=== PATIENT | male | born 1995 ===

== ENCOUNTER 2019-09-29 22:23 | Emergency (ER) | payer MEDICAID ==
[2019-09-29] MEDS ORDERED: Sodium Chloride 0.9% 10 ML Syringe FLUSH PRN (22:46)
--- NOTE | 2019-09-29 22:46 | EDM.PDOC ---
ED HPI GENERAL MEDICAL PROBLEM - General Chief Complaint: Neurological Problem Stated Complaint: recent seizure Time Seen by Provider: 09/29/19 22:30 Source of Information: Reports: Patient, Old Records ([facility] records available), Significant Other, Other ([facility], [facility]) - History of Present Illness INITIAL COMMENTS - FREE TEXT/NARRATIVE: The patient was brought to the emergency room via private automobile by the mother of his significant other for evaluation of witnessed recurrent grand mal seizure activity with seizures occurring at 21:40 hours and 21:50 hours and then at 21: 52 hours with each seizure lasting between 1-2 minutes, however no postictal sedation urinary/stool incontinence, significant fall, injury, etc. He did complain of a 9/10 diffuse headache starting at 3 PM this afternoon with 400 mg of ibuprofen taken at 16:00 hours. Note that the patient did have an argument with his significant other shortly prior to onset of the above seizures. No history of recent visual changes, diplopia, change in mental status , or other change in neurological status. The patient denies any chest pain/ pressure, heart flutter, dizziness, orthostasis, orthopnea, diaphoresis, paresthesias, recent decreased exercise tolerance, or any other anginal-type symptoms. No recent history of abdominal pain, heartburn, nausea, diarrhea, melena, gross hematochezia, or any food intolerance, including fatty foods, etc. , although he did have one emesis earlier this morning. The patient also denies any recent fever, cough, wheezing, dyspnea, etc.. Onset: Today, Sudden Onset Date: 09/29/19 Onset Time: 21:40 Duration: Resolved Prior to Arrival Location: Reports: Head (Headache). Denies: Face, Neck, Chest, Abdomen, Back, Upper Extremity, Left, Upper Extremity, Right, Radiates to Quality: Reports: Same as Previous Episode, Throbbing Severity: Moderate Improves with: Reports: None Worsens with: Reports: None Context: Reports: Other (As above). Denies: Sick Contact, Trauma Associated Symptoms: Reports: Headaches, Nausea/Vomiting (No current nausea), Seizure (Possible). Denies: Confusion, Chest Pain, Cough, Diaphoresis, Fever/ Chills, Loss of Appetite, Malaise, Rash, Shortness of Breath, Syncope, Weakness Treatments [employer]: Reports: NSAIDS Bilateral Headache Pain Score (Numeric/FACES): 9 - Related Data Allergies Allergy/AdvReac Type Severity Reaction Status Date / Time No Known Allergies Allergy Verified 09/29/19 22:25 Home Meds: Home Meds ALPRAZolam [Xanax] 0.5 mg PO DAILY PRN 09/29/19 [History] Escitalopram Oxalate [Lexapro] 10 mg PO DAILY 09/29/19 [History] Ibuprofen 2 tab PO Q6HR PRN 09/29/19 [History] Past Medical History HEENT History: Reports: Impaired Vision, Other (See Below). Denies: Allergic Rhinitis, Hard of Hearing, Otitis Media, Retinal Detachment Other HEENT History: Patient has glasses however noncompliant. Cardiovascular History: Reports: Other (See Below). Denies: Afib, Aneurysm, Arrhythmia, Blood Clots/VTE/DVT, CAD, Heart Failure, Heart Murmur, High Cholesterol, Hypertension, PA, Syncope Other Cardiovascular History: He does not know his cholesterol status. Respiratory History: Reports: None. Denies: Asthma, Bronchitis, Recurrent, Intubation, Previous, PE, Pneumothorax Gastrointestinal History: Reports: None. Denies: Celiac Disease, Cholelithiasis , Fecal Incontinence, Gastritis, GERD, Inflammatory Bowel Disease, Irritable Bowel Syndrome, Jaundice, PUD Genitourinary History: Reports: None. Denies: Acute Renal Failure, Chronic Renal Insuffiency, Renal Calculus, STD, Urinary Incontinence, UTI, Recurrent Musculoskeletal History: Reports: Fracture, Other (See Below). Denies: Arthritis, Back Pain, Chronic, Gout, Neck Pain, Chronic, Osteoarthritis, RA, SLE Other Musculoskeletal History: Scoliosismild. Boxer's fracture of the right fifth metatarsal at age 17 with surgery as below. Right wrist fracture at age 8 with surgery as below. Mid radial and ulnar shaft fractures age 15. Neurological History: Reports: Headaches, Chronic, Seizure, Other (See Below). Denies: Concussion, CVA, Head Trauma, Migraines, MS, Neuropathy, Peripheral, Parkinson's, TIA, Vertigo Other Neuro History: Grand mal seizure disorder versus pseudoseizures beginning at age 14 negative workup to this point. Psychiatric History: Reports: Anxiety, Depression, Psych Hospitalization(s), Suicide Attempt, Suicidal Ideation, Other (See Below). Denies: Abuse, Victim of , ADD, ADHD, Addiction Other Psychiatric History: History of previous 15 suicide attempts, including narcotic overdoses, requiring inpatient treatments. Endocrine/Metabolic History: Reports: None. Denies: Diabetes, Type I, Diabetes , Type II, Hypothyroidism, IDDM Hematologic History: Reports: None. Denies: Anemia, Blood Transfusion(s), Iron Deficiency Immunologic History: Reports: None. Denies: AIDS, HIV, SLE Oncologic (Cancer) History: Reports: None. Denies: Basal Cell Carcinoma, Hodgkin's Lymphoma, Leukemia, Lymphoma, Malignant Melanoma, Non-Hodgkin's Lymphoma, Squamous Cell Carcinoma Dermatologic History: Reports: None. Denies: Eczema, Psoriasis - Infectious Disease History Infectious Disease History: Reports: Mononucleosis (Possible previous mononucleosis at age 14.). Denies: C-Difficile, Chicken Pox, Measles, Meningitis, MRSA, Multidrug-Resistant Gram-Negative, Other, Mumps, Pertussis ( Whooping Cough), Rheumatic Fever, Rubella, Scarlet Fever, TB, VRE - Past Surgical History Head Surgeries/Procedures: Reports: None HEENT Surgical History: Reports: Adenoidectomy, Oral Surgery, Tonsillectomy, Other (See Below). Denies: Eye Surgery, Laser Surgery, LASIK, Myringotomy w Tube(s), Naso-Sinus Surgery Other HEENT Surgeries/Procedures: Tonsillectomy and adenoidectomy at age 9. Tooth extractions. [place] teeth extraction X 4 at age 18. Cardiovascular Surgical History: Reports: None. Denies: Varicose Respiratory Surgical History: Reports: None. Denies: Thoracentesis GI Surgical History: Reports: None. Denies: Appendectomy, Cholecystectomy, Colonoscopy, EGD, Hernia, Abdominal, Hernia, Inguinal, Hernia Repair/Other Male Surgical History: Reports: Circumcision, Other (See Below). Denies: Vasectomy Other Male Surgeries/Procedures: Circumcision as an . Endocrine Surgical History: Reports: None. Denies: Thyroid Biopsy Neurological Surgical History: Reports: None. Denies: C-Spine, Discectomy, Laminectomy, Lumbar Spine, Scoliosis, Spinal Fusion, Thoracic Spine, Vertebroplasty Musculoskeletal Surgical History: Reports: ORIF, Other (See Below). Denies: Arthroscopic Procedure, Carpal Tunnel, Ganglion Cyst, Joint Replacement, Shoulder Surgery Other Musculoskeletal Surgeries/Procedures:: ORIF of right wrist fracture and right fifth metatarsal fractures as above. Oncologic Surgical History: Reports: None Dermatological Surgical History: Reports: None Social & Family History - Family History Neurological: Reports: Seizure, Other (See Below) Other Neurological Family History: Paternal grandmother with unknown type of seizure disorder since manager ct. - Tobacco Use Smoking Status *Q: Current Every Day Smoker Tobacco Use Within Last Twelve Months: Cigarettes Years of Tobacco use: 9 Packs/Tins Daily: 1 (Started at age 15.) Used Tobacco, but Quit: No Smoking Cessation Information Provided To Patient: Yes Second Hand Smoke Exposure: No Second Hand Smoke Education Provided: No - Caffeine Use Caffeine Use: Reports: Energy Drinks (One can per day tobacco), Soda (5 sodas per day). Denies: Coffee, Tea - Alcohol Use Alcohol Use History: Yes Days Per Week of Alcohol Use: 1 Number of Drinks Per Day: 5 Number of Drinks Per Day Comment: Usually Beer. No previous DWIs, problems with alcohol abuse, etc. Total Drinks Per Week: 5 Alcohol Use in Last Twelve Months: Yes - Recreational Drug Use Recreational Drug Use: Yes Drug Use in Last 12 Months: Yes Recreational Drug Type: Reports: Marijuana/Hashish (Every 2 days since age 15.) . Denies: Amphetamines (Speed), Cocaine, Heroin, Inhalants (Glues, Solvents, Aerosols), Methamphetamine, Morphine, Opium, Oxycodone - Living Situation & Occupation Living situation: Reports: with Significant Other (Son from a different relationship.) Occupation: Employed (warehouse pricing and inventory clerk, adviser for staying cleaning service) ED ROS GENERAL - Review of Systems Review Of Systems: Comprehensive ROS is negative, except as noted in HPI. ED EXAM, NEURO - Physical Exam Exam: See Below Exam Limited By: No Limitations General Appearance: Alert, WD/WN, No Apparent Distress Eye Exam: Bilateral Eye: EOMI, Normal Fundi, Normal Inspection (No nystagmus), PERRL Ears: Normal External Exam, Normal Canal, Hearing Grossly Normal, Normal TMs Nose: Normal Inspection, Normal Mucosa, No Blood Throat/Mouth: Normal Lips, Normal Gums, Normal Oropharynx, Normal Voice, No Airway Compromise, Other (No evidence of tongue injury.). No: Normal Teeth ( Occasional missing teeth with large anterior caries in the last left lower premolar with no abscess formation), Dysphagia, Perioral Cyanosis Head Exam: Atraumatic, Normocephalic. No: Facial Swelling, Facial Tenderness, Sinus Tenderness Neck: Normal Inspection, Supple, Non-Tender, Full Range of Motion. No: Carotid Bruit, Lymphadenopathy (L), Lymphadenopathy (R), Thyromegaly Respiratory/Chest: No Respiratory Distress, Lungs Clear, Normal Breath Sounds, No Accessory Muscle Use, Chest Non-Tender. No: Pleural Rub, Retractions Cardiovascular: Normal Peripheral Pulses, Regular Rate, Rhythm, No Edema, No Gallop, No JVD, No Murmur, No Rub. No: Diastolic Murmur, Gallop/S3, Gallop/S4 GI/Abdominal: Normal Bowel Sounds, Soft, Non-Tender, No Organomegaly, No Distention, No Abnormal Bruit, No Mass, Pelvis Stable. No: Guarding (Male) Exam: Deferred Rectal (Males) Exam: Deferred Neurological: Alert, Normal Mood/Affect, Normal Dorsiflexion, CN II-XII Intact, Normal Plantar Flexion, Normal Gait, Normal Reflexes, No Motor/Sensory Deficits , Oriented x 3, Other (Negative Babinski's, finger to nose, and pronator rotation tests. No evidence of facial paresis, tongue deviation, orthostasis, etc.. Excellent reverse thought processes.). No: Babinski Back Exam: Normal Inspection, Full Range of Motion. No: CVA Tenderness (L), CVA Tenderness (R), Muscle Spasm Extremities: Normal Inspection, Normal Range of Motion, Non-Tender, No Pedal Edema, Normal Capillary Refill. No: Sandi's Sign Psychiatric: Anxious (Mild to moderate), Depressed Mood (Mild to moderate with adequate eye) Skin Exam: Warm, Dry, Intact, Normal Color, No Rash, Other (Mild acne). No: Diaphoretic, Wound/Incision EKG INTERPRETATION EKG Date: 09/29/19 Time: 23:21 Rhythm: NSR Rate (Beats/Min): 66 Howard: Normal (Neutral) P-Wave: Present QRS: Normal (0.10 seconds representing repolarization changes) ST-T: Normal (T wave inversion in lead V1) QT: Normal PA/PQ Interval: 0.13 seconds was in a short PA interval with no delta waves noted. Pulmonary hypertension by EKG. Comparison: NA - No Prior EKG EKG Interpretation Comments: 1. No acute ischemic changes 2. Repolarization changes 3. Short PA interval 4. Pulmonary hypertension by EKG. Course - Vital Signs Last Recorded V/S: Last Vital Signs Temp 37.3 C 09/29/19 23:58 Pulse 76 09/29/19 23:58 Resp 12 09/29/19 23:58 BP 127/76 09/29/19 23:58 Pulse Ox 99 09/29/19 23:58 Vital Signs - 24 hr 09/29/19 09/29/19 09/29/19 22:25 22:45 23:00 Temperature [ 37.5 C Temporal] Pulse, 87 90 83 Peripheral [ Pulse Oximetry] Respiratory 14 24 H 25 H Rate Blood Pressure 129/90 116/75 129/83 [Left Upper Arm ] O2 Sat by Pulse 98 100 99 Oximetry 09/29/19 09/29/19 09/29/19 23:17 23:30 23:45 Temperature [ Temporal] Pulse, 81 79 74 Peripheral [ Pulse Oximetry] Respiratory 14 18 16 Rate Blood Pressure 126/90 111/96 H 114/78 [Left Upper Arm ] O2 Sat by Pulse 100 98 99 Oximetry 09/29/19 23:58 Temperature [ 37.3 C Temporal] Pulse, 76 Peripheral [ Pulse Oximetry] Respiratory 12 Rate Blood Pressure 127/76 [Left Upper Arm ] O2 Sat by Pulse 99 Oximetry - Orders/Labs/Meds Orders: Active Orders 24 hr Category Date Time Status Cardiac Monitoring [RC] STAT Care 09/29/19 22:46 Active EKG Documentation Completion [RC] ASDIRECTED Care 09/29/19 22:47 Active NIH Stroke Scale [RC] ASDIRECTED Care 09/29/19 22:46 Active Oxygen Therapy, ED [RC] PRN Care 09/29/19 22:46 Active Peripheral IV Care [RC] . DIRECTED Care 09/29/19 22:47 Active Pulse Oximetry [RC] CONTINUOUS Care 09/29/19 22:46 Active Up With Assistance [RC] ASDIRECTED Care 09/29/19 22:46 Active Vital Signs [RC] PFP Care 09/29/19 22:46 Active Nothing per Oral Now Diet [DIET] Diet 09/29/19 Breakfast Active Chest 1V Frontal [CR] Stat Exams 09/29/19 22:46 Ordered Head wo Cont [CT] Stat Exams 09/29/19 22:46 Ordered Head wo Cont [CT] Stat Exams 09/29/19 22:46 Stop Req PROLACTIN [REF] Stat Lab 09/29/19 22:45 Received Sodium Chloride 0.9% [Saline Flush] Med 09/29/19 22:46 Active 10 ml FLUSH ASDIRECTED PRN Obtain Past Medical Record [OM.PC] Stat Oth 09/29/19 22:46 Active Peripheral IV Insertion Adult [OM.PC] Stat Oth 09/29/19 22:46 Ordered Resuscitation Status Stat Resus Stat 09/29/19 22:46 Ordered Medication Orders Sodium Chloride (Saline Flush) 10 ml FLUSH ASDIRECTED PRN PRN Reason: Keep Vein Open Labs: Laboratory Tests 09/29/19 09/29/19 09/29/19 Range/Units 22:45 22:45 22:45 WBC 9.6 (4.0-10.2) K/uL RBC 4.56 (4.33-5.41) M/uL Hgb 15.0 (13.1-16.8) g/dL Hct 42.9 (39.0-49.0) % MCV 94.1 (84.0-98.0) fL MCH 32.9 (28.2-33.3) pg MCHC 35.0 (31.7-36.0) g/dL RDW 11.9 (11.2-14.1) % Plt Count 277 (150-350) K/uL Neut % (Auto) 73.6 (45.0-80.0) % Lymph % (Auto) 15.3 (10.0-50.0) % Meade % (Auto) 9.4 (2.0-14.0) % Eos % (Auto) 1.4 (0.0-5.0) % Baso % (Auto) 0.3 (0.0-2.0) % Neut # (Auto) 7.05 H (1.40-7.00) K/uL Lymph # (Auto) 1.46 (0.50-3.50) K/uL Meade # (Auto) 0.90 (0.00-1.00) K/uL Eos # (Auto) 0.13 (0.00-0.50) K/uL Baso # (Auto) 0.03 (0.00-0.20) K/uL PT 11.4 (9.5-12.0) SEC INR 1.1 APTT 29.9 (21.0-31.3) SEC D-Dimer, Quantitative 108 (0-400) ng/mL Sodium (136-145) mmol/L Potassium (3.5-5.1) mmol/L Chloride (98-107) mmol/L Carbon Dioxide (21.0-32.0) mmol/L BUN (7-18) mg/dL Creatinine (0.51-1.17) mg/dL Est Cr Clr Drug Dosing Estimated GFR (MDRD) mL/min Glucose (74-106) mg/dL Lactic Acid (0.4-2.0) mmol/L Uric Acid (2.6-7.2) mg/dL Calcium (8.5-10.1) mg/dL Magnesium (1.8-2.4) mg/dL Total Bilirubin (0.2-1.0) mg/dL AST (15-37) U/L ALT (12-78) U/L Alkaline Phosphatase (46-116) IU/L Creatine Kinase (26-308) U/L Creatine Kinase Index (0.0-2.5) % CK-MB (CK-2) (0.00-3.60) ng/mL Troponin I (0.000-0.056) ng/mL NT-Pro-B Natriuret Pep (0-125) pg/mL Total Protein (6.4-8.2) g/dL Albumin (3.4-5.0) g/dL TSH, Ultra Sensitive (0.358-3.740) mIU/mL Ethyl Alcohol (0.000-0.080) g/dL 09/29/19 09/29/19 09/29/19 Range/Units 22:45 22:45 22:45 WBC (4.0-10.2) K/uL RBC (4.33-5.41) M/uL Hgb (13.1-16.8) g/dL Hct (39.0-49.0) % MCV (84.0-98.0) fL MCH (28.2-33.3) pg MCHC (31.7-36.0) g/dL RDW (11.2-14.1) % Plt Count (150-350) K/uL Neut % (Auto) (45.0-80.0) % Lymph % (Auto) (10.0-50.0) % Meade % (Auto) (2.0-14.0) % Eos % (Auto) (0.0-5.0) % Baso % (Auto) (0.0-2.0) % Neut # (Auto) (1.40-7.00) K/uL Lymph # (Auto) (0.50-3.50) K/uL Meade # (Auto) (0.00-1.00) K/uL Eos # (Auto) (0.00-0.50) K/uL Baso # (Auto) (0.00-0.20) K/uL PT (9.5-12.0) SEC INR APTT (21.0-31.3) SEC D-Dimer, Quantitative (0-400) ng/mL Sodium 141 (136-145) mmol/L Potassium 3.1 L (3.5-5.1) mmol/L Chloride 103 (98-107) mmol/L Carbon Dioxide 24.9 (21.0-32.0) mmol/L BUN 7 (7-18) mg/dL Creatinine 0.79 (0.51-1.17) mg/dL Est Cr Clr Drug Dosing TNP Estimated GFR (MDRD) > 60 mL/min Glucose 91 (74-106) mg/dL Lactic Acid 1.4 (0.4-2.0) mmol/L Uric Acid 5.1 (2.6-7.2) mg/dL Calcium 9.4 (8.5-10.1) mg/dL Magnesium 1.9 (1.8-2.4) mg/dL Total Bilirubin 0.7 (0.2-1.0) mg/dL AST 15 (15-37) U/L ALT 16 (12-78) U/L Alkaline Phosphatase 66 (46-116) IU/L Creatine Kinase 136 (26-308) U/L Creatine Kinase Index 0.6 (0.0-2.5) % CK-MB (CK-2) 0.80 (0.00-3.60) ng/mL Troponin I 0.000 (0.000-0.056) ng/mL NT-Pro-B Natriuret Pep 22 (0-125) pg/mL Total Protein 8.4 H (6.4-8.2) g/dL Albumin 4.9 (3.4-5.0) g/dL TSH, Ultra Sensitive 1.659 (0.358-3.740) mIU/mL Ethyl Alcohol 0.000 (0.000-0.080) g/dL Prolactin level drawn with results pending. Meds: Medications Generic Name Dose Route Start Last Admin Trade Name Freq PRN Reason Stop Dose Admin Sodium Chloride 10 ml 09/29/19 22:46 Saline Flush FLUSH ASDIRECTED PRN Keep Vein Open Discontinued Medications Generic Name Dose Route Start Last Admin Trade Name Freq PRN Reason Stop Dose Admin Potassium Chloride 40 meq 09/30/19 23:39 Klor-Con M20 PO 09/30/19 23:40 ONETIME ONE Potassium Chloride 40 meq 09/29/19 23:39 09/29/19 23:55 Klor-Con M20 PO 09/29/19 23:40 40 meq ONETIME ONE Administration - Radiology Interpretation Free Text/Narrative:: monitoring engineer shows normal sinus rhythm ranging the 60s to 80s with no ectopy or arrhythmia. Chest x-ray, portable, shows evidence of possible pulmonary obstructive disease with no cardiomegaly, pulmonary infiltrates, CHF, pneumothorax, etc. Telephone consultation at 23:35 hours with the radiology department at [facility]. Preliminary verbal report of CT scan of the head was negative. CT Results Date: 09/29/19 CT Results Time: 23:35 Departure - Departure Time of Disposition: 00:12 Disposition: Home, Self-Care 01 Condition: Good Clinical Impression: Seizure disorder, Mixed anxiety depressive disorder, Hypokalemia, Tobacco abuse counseling, Illicit drug use, continuous - Discharge Information *PRESCRIPTION DRUG MONITORING PROGRAM REVIEWED*: Not Applicable *COPY OF PRESCRIPTION DRUG MONITORING REPORT IN PATIENT JARED: Not Applicable Instructions: Non-Epileptic Seizures, Adult, Seizure, Adult, [id number] Referrals: PCP,None [Ordering Only Provider] - Forms: ED Department Discharge, ED Return to Work/School Form Additional Instructions: 1. Call your regular provider DHARMESH in the a.m. for recommended neurology referral/consultation including recommended EEG. 2. Followup with your regular provider in 7 days as directed for reevaluation, basic metabolic panel, and discussion of today's prolactin level results. Bring these discharge instructions with you to that visit. 3. Tylenol 650 mg by mouth every 4 hours and/or OTC ibuprofen 2-3 tabs by mouth every 6 hours with food as directed./needed. You may stagger these medications for 48-72 hours only, which essentially means that you are receiving a pain medication about every 2 hours. 4. Restart your antidepressant and anti-anxiety indications DHARMESH as far refills from your regular provider tomorrow morning as above 5. Stop all tobacco and illicit drugs/marijuana use DHARMESH as directed/per provided information and consider contacting Quit LIne, etc.. 6. Immediately after this visit verify that your cellular telephone's voicemail has been activated and is empty. Also verify that your home telephone 's answering machine is operating properly and has space to receive messages. Note that it is sometimes necessary for us to be able to contact you at a later date to discuss your medical care. 7. Please remember that we are ALWAYS here for you and want to answer any questions you may have. Feel free to call the hospital any time and we call you back DHARMESH. 8. Activity restrictions as discussed until released by your neurologist, including strict no driving, strict fall precautions, etc. Sepsis Event Note - Evaluation Sepsis Screening Result: No Definite Risk - Focused Exam Vital Signs: Vital Signs Temp Pulse Resp BP Pulse Ox 09/29/19 23:58 37.3 C 76 12 127/76 99 09/29/19 23:45 74 16 114/78 99 09/29/19 23:30 79 18 111/96 H 98 09/29/19 23:17 81 14 126/90 100 09/29/19 23:00 83 25 H 129/83 99 09/29/19 22:45 90 24 H 116/75 100 09/29/19 22:25 37.5 C 87 14 129/90 98 Date Exam was Performed: 09/30/19 Time Exam was Performed: 00:20 - Problem List & Annotations (1) Seizure disorder SNOMED Code(s): 570043062 Code(s): G40.909 - EPILEPSY, UNSP, NOT INTRACTABLE, WITHOUT STATUS EPILEPTICUS Status: Acute Priority: High Annotation/Comment:: Patient states that he has had recurrent seizures since age 14 with multiple negative workups, including CT scans of the head, EEGs, etc. His last seizure was in November 2018 and was seen at [facility] in [place] with CT scan of the head and EEG performed at that time by his history. Extensive review of EMR records both from [facility] and [facility] do not indicate recent testing or evaluation, however. No postictal sedation, etc. despite 3 seizures this evening. Suspect pseudoseizure. Note negative CT scan of the head results as above. Neurology referral with recommended EEG as per discharge instructions. Activity restrictions including driving, etc. were extensively discussed. Work excuse provided with patient having to be released by his neurologist rather than primary provider to lift these restrictions. Prolactin level drawn with results pending. Note per indirect history between the patient's mother and the mother of his significant other earlier this evening the patient has always had seizures triggered by stress and/or emotional events just as today. The patient denies any other triggers at this time, including watching television, insomnia/ sleep deprivation, etc. The patient was provided information concerning both pseudoseizures and regular seizures. (2) Hypokalemia SNOMED Code(s): 21375412 Code(s): E87.6 - HYPOKALEMIA Status: Acute Priority: Medium Onset Date : 09/30/19 Annotation/Comment:: Note 1 emesis earlier today. He is not on any medications, which would cause hypokalemia. Potassium chloride given in the emergency room. Observe for now. Close follow-up by regular provider as per discharge instructions. (3) Illicit drug use, continuous SNOMED Code(s): 301500322 Code(s): F19.90 - OTHER PSYCHOACTIVE SUBSTANCE USE, UNSPECIFIED, UNCOMPLICATED Status: Chronic Priority: High Annotation/Comment:: As above (4) Mixed anxiety depressive disorder SNOMED Code(s): 119464998 Code(s): F41.8 - OTHER SPECIFIED ANXIETY DISORDERS Status: Chronic Priority: High Annotation/Comment:: Moderate to poor control with the patient having been noncompliant with his medications for several months secondary to financial reasons. Strict compliance strongly encouraged with the patient also encouraged not to use marijuana as an antianxiety agent. He denies any suicidal ideation at this time. (5) Tobacco abuse counseling SNOMED Code(s): 162544172, 911628413, 624367561 Code(s): Z71.6 - TOBACCO ABUSE COUNSELING Status: Chronic Priority: Medium Annotation/Comment:: Tobacco cessation strongly encouraged with tobacco cessation information provided at discharge. - Problem List Review Problem List Initiated/Reviewed/Updated: Yes - My Orders Last 24 Hours: My Active Orders 09/29/19 22:45 PROLACTIN [REF] Stat 09/29/19 22:46 Cardiac Monitoring [RC] STAT NIH Stroke Scale [RC] ASDIRECTED Oxygen Therapy, ED [RC] PRN Pulse Oximetry [RC] CONTINUOUS Up With Assistance [RC] ASDIRECTED Vital Signs [RC] PFP Chest 1V Frontal [CR] Stat Head wo Cont [CT] Stat Head wo Cont [CT] Stat Sodium Chloride 0.9% [Saline Flush] 10 ml FLUSH ASDIRECTED PRN Obtain Past Medical Record [OM.PC] Stat Peripheral IV Insertion Adult [OM.PC] Stat Resuscitation Status Stat 09/29/19 22:47 EKG Documentation Completion [RC] ASDIRECTED Peripheral IV Care [RC] . DIRECTED 09/29/19 Breakfast Nothing per Oral Now Diet [DIET] - Assessment/Plan Last 24 Hours: My Active Orders 09/29/19 22:45 PROLACTIN [REF] Stat 09/29/19 22:46 Cardiac Monitoring [RC] STAT NIH Stroke Scale [RC] ASDIRECTED Oxygen Therapy, ED [RC] PRN Pulse Oximetry [RC] CONTINUOUS Up With Assistance [RC] ASDIRECTED Vital Signs [RC] PFP Chest 1V Frontal [CR] Stat Head wo Cont [CT] Stat Head wo Cont [CT] Stat Sodium Chloride 0.9% [Saline Flush] 10 ml FLUSH ASDIRECTED PRN Obtain Past Medical Record [OM.PC] Stat Peripheral IV Insertion Adult [OM.PC] Stat Resuscitation Status Stat 09/29/19 22:47 EKG Documentation Completion [RC] ASDIRECTED Peripheral IV Care [RC] . DIRECTED 09/29/19 Breakfast Nothing per Oral Now Diet [DIET] Assessment:: As above Plan: As above. Extensive precautions were given to the patient and his significant other, who are in agreement with the treatment plan.Extensive precautions were given to the patient, who is in agreement with the treatment plan.
[2019-09-29 23:19] LABS: CHLORIDE,CL 103 mmol/L (98-107); SODIUM,NA 141 mmol/L (136-145)
[2019-09-29] MEDS ORDERED: Potassium Chloride 20 MEQ Tab.ER PO ONE (23:39)
[2019-09-30] MEDS ORDERED: Potassium Chloride 20 MEQ Tab.ER PO ONE (23:39)
== END 2019-09-30 00:10 | disposition home or self-care (01) ==
LOC: LL.ED 22:23 → MERGE 22:23 → LL.ED 09-30 00:10
DX: G40.909 Epilepsy, unspecified, not intractable, without status epilepticus (principal); F41.8 Other specified anxiety disorders; E87.6 Hypokalemia; K02.9 Dental caries, unspecified; F19.90 Other psychoactive substance use, unspecified, uncomplicated; Z71.6 Tobacco abuse counseling
CPT/HCPCS: 36415; 70450; 71045; 80053; 82550; 82553; 83605; 83735; 83880; 84146; 84443; 84484; 84550; 85025; 85379; 85610; 85730; 93005; 93010; 99284; 99284-25; A9270-GY; G0480

== ENCOUNTER 2020-01-20 15:16 | Emergency (ER) | payer SELFPAY ==
--- NOTE | 2020-01-20 15:17 | EDM.PDOC ---
ED HPI GENERAL MEDICAL PROBLEM - General Chief Complaint: General Stated Complaint: overdose Time Seen by Provider: 01/20/20 15:17 Source of Information: Reports: Patient, Old Records ([facility] EMR. No paper hospital chart available.), Other (Previous EMR records from [facility] reviewed on 09/29/19.) History Limitations: Reports: Altered Mental Status, Combative/Threatening, Intoxication - History of Present Illness INITIAL COMMENTS - FREE TEXT/NARRATIVE: The patient was brought to the emergency room via ambulance with plate corrector accompaniment after interception with sock knitting machine operator/basic ambulance service. 911 was called secondary to patient's significant sedation and intentional overdose with the patient apparently taking #20, 0.5 mg tablets of Xanax, which he just refilled at noon today. The patient did receive 2 mg of Narcan IV with additional right-sided nasal oral airway inserted by the paramedics prior to arrival. He is a poor historian secondary to his current emotional status, sedation, etc.. No recent history of abdominal pain, heartburn, nausea, diarrhea , melena, gross hematochezia, etc.. The patient also denies any recent fever, cough, wheezing, dyspnea, etc.. He denies taking any other substances or illicit drugs, although he does acknowledge taking alcohol earlier today. No apparent significant pain or discomfort. Note that the patient has been noncompliant with his Xanax for about one year and his Lexapro for about 3-4 months based on refill history from his pharmacist today. He is not currently on any antiseizure medications. He also denies any specific pain or discomfort. Onset: Today, Unknown/Unsure Onset Date: 01/20/20 Onset Time: 12:00 Duration: Constant, Other (No pain) Severity: Severe Improves with: Reports: None Worsens with: Reports: None Associated Symptoms: Reports: Confusion. Denies: Chest Pain, Cough, Fever/ Chills, Headaches, Loss of Appetite, Nausea/Vomiting, Seizure, Shortness of Breath, Syncope, Weakness Treatments SPA TECHNICIAN: Reports: Other Medication(s) (As above) - Related Data Allergies Allergy/AdvReac Type Severity Reaction Status Date / Time No Known Allergies Allergy Verified 09/29/19 22:25 Home Meds: Home Meds ALPRAZolam [Xanax] 0.5 mg PO DAILY PRN 09/29/19 [History] Escitalopram Oxalate [Lexapro] 10 mg PO DAILY 09/29/19 [History] Ibuprofen 2 tab PO Q6HR PRN 09/29/19 [History] Past Medical History HEENT History: Reports: Impaired Vision, Other (See Below). Denies: Allergic Rhinitis, Hard of Hearing, Otitis Media, Retinal Detachment Other HEENT History: Patient has glasses however noncompliant. Cardiovascular History: Reports: Arrhythmia, Other (See Below). Denies: Afib, Aneurysm, Blood Clots/VTE/DVT, CAD, Heart Failure, Heart Murmur, High Cholesterol, Hypertension, SC, Syncope Other Cardiovascular History: Short KS interval. He does not know his cholesterol status. Respiratory History: Reports: None. Denies: Asthma, Bronchitis, Recurrent, COPD , Intubation, Previous, PE, Pneumothorax Gastrointestinal History: Reports: Other (See Below). Denies: Celiac Disease, Cholelithiasis, Fecal Incontinence, Gastritis, GERD, Inflammatory Bowel Disease , Irritable Bowel Syndrome, Jaundice, PUD Other Gastrointestinal History: Borderline splenomegaly. Genitourinary History: Reports: None. Denies: Acute Renal Failure, Chronic Renal Insuffiency, Renal Calculus, STD, Urinary Incontinence, UTI, Recurrent Musculoskeletal History: Reports: Fracture, Other (See Below). Denies: Arthritis, Back Pain, Chronic, Gout, Neck Pain, Chronic, Osteoarthritis, RA, SLE Other Musculoskeletal History: Scoliosismild. Boxer's fracture of the right fifth metatarsal at age 17 with surgery as below. Right wrist fracture at age 8 with surgery as below. Mid radial and ulnar shaft fractures age 15. Scoliosis mild. Neurological History: Reports: Headaches, Chronic, Seizure, Other (See Below). Denies: Cerebral Aneurysms, Concussion, CVA, Head Trauma, Migraines, MS, Neuropathy, Peripheral, Parkinson's, TIA, Vertigo Other Neuro History: Grand mal seizure disorder versus pseudoseizures beginning at age 14 negative workup to this point. 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 Psychiatric History: Reports: Addiction, Anxiety, Depression, Psych Hospitalization(s), Suicide Attempt, Suicidal Ideation, Other (See Below). Denies: Abuse, Victim of, ADD, ADHD, PTSD Other Psychiatric History: History of previous 15 suicide attempts, including narcotic overdoses, requiring inpatient treatments. Endocrine/Metabolic History: Reports: Hypokalemia. Denies: Diabetes, Type I, Diabetes, Type II, Hypothyroidism, IDDM Hematologic History: Reports: None. Denies: Anemia, Blood Transfusion(s), Iron Deficiency Immunologic History: Reports: None. Denies: AIDS, HIV, SLE Oncologic (Cancer) History: Reports: None. Denies: Basal Cell Carcinoma, Hodgkin's Lymphoma, Leukemia, Lymphoma, Malignant Melanoma, Non-Hodgkin's Lymphoma, Squamous Cell Carcinoma Dermatologic History: Reports: None. Denies: Eczema, Psoriasis - Infectious Disease History Infectious Disease History: Reports: Mononucleosis (Possible previous mononucleosis at age 14.). Denies: C-Difficile, Chicken Pox, Measles, Meningitis, MRSA, Multidrug-Resistant Gram-Negative, Other, Mumps, Pertussis ( Whooping Cough), Rheumatic Fever, Rubella, Scarlet Fever, TB, VRE - Past Surgical History Head Surgeries/Procedures: Reports: None HEENT Surgical History: Reports: Adenoidectomy, Oral Surgery, Tonsillectomy, Other (See Below). Denies: Cataract Surgery, Eye Surgery, Laser Surgery, LASIK , Myringotomy w Tube(s), Naso-Sinus Surgery Other HEENT Surgeries/Procedures: Tonsillectomy and adenoidectomy at age 9. Multiple tooth extractions. Howe teeth extraction 4 at age 18. Cardiovascular Surgical History: Reports: None. Denies: Varicose Respiratory Surgical History: Reports: None. Denies: Thoracentesis GI Surgical History: Reports: None. Denies: Appendectomy, Cholecystectomy, Colonoscopy, EGD, Hernia, Abdominal, Hernia, Inguinal, Hernia Repair/Other Male Surgical History: Reports: Circumcision, Other (See Below). Denies: Vasectomy Other Male Surgeries/Procedures: Circumcision as an . Endocrine Surgical History: Reports: None Neurological Surgical History: Reports: None. Denies: C-Spine, Discectomy, Laminectomy, Lumbar Spine, Spinal Fusion, Thoracic Spine, Vertebroplasty Musculoskeletal Surgical History: Reports: ORIF, Other (See Below). Denies: Arthroscopic Knee, Arthroscopic Procedure, Carpal Tunnel, Ganglion Cyst, Joint Replacement, Shoulder Surgery Other Musculoskeletal Surgeries/Procedures:: ORIF of right wrist fracture and right fifth metatarsal fractures as above. Oncologic Surgical History: Reports: None Dermatological Surgical History: Reports: None - Past Imaging History Past Imaging History: Reports: CAT Scan (CT scan of the head on 09/29/19.), MRI (MRI of the brain on 10/06/19.) Social & Family History - Family History Neurological: Reports: Other (See Below), Seizure Other Neurological Family History: Paternal grandmother with unknown type of seizure disorder since early childhood special educator. - Tobacco Use Smoking Status *Q: Current Every Day Smoker Tobacco Use Within Last Twelve Months: Cigarettes Years of Tobacco use: 9 Packs/Tins Daily: 0.5 Packs/Tins Daily Comment: Started smoking at age 15 Used Tobacco, but Quit: No Smoking Cessation Information Provided To Patient: Patient Refused Second Hand Smoke Exposure: No - Caffeine Use Caffeine Use: Reports: Energy Drinks (One can per day tobacco), Soda (5 sodas per day). Denies: Coffee, Tea - Alcohol Use Alcohol Use History: Yes Days Per Week of Alcohol Use: 1 Number of Drinks Per Day: 5 Number of Drinks Per Day Comment: Usually beer. No previous DWIs, problems with alcohol abuse, etc. Total Drinks Per Week: 5 Date of Last Drink: 01/20/20 Alcohol Use in Last Twelve Months: Yes - Recreational Drug Use Recreational Drug Use: Yes Drug Use in Last 12 Months: Yes Recreational Drug Type: Reports: Marijuana/Hashish (Every 2 days since age 15). Denies: Amphetamines (Speed), Cocaine, Heroin, Inhalants (Glues, Solvents, Aerosols), LSD (Acid), Methamphetamine, Morphine, Oxycodone - Living Situation & Occupation Living situation: Reports: with Significant Other (Son from a different relationship.) Occupation: Employed (circuit court clerk, adviser for staying cleaning service) ED ROS GENERAL - Review of Systems Review Of Systems: Comprehensive ROS is negative, except as noted in HPI. ED EXAM, GENERAL - Physical Exam Exam: See Below Exam Limited By: No Limitations General Appearance: Anxious (Severe), Lethargic, Obtunded Eye Exam: Bilateral Eye: EOMI, Normal Fundi, Normal Inspection (No nystagmus), PERRL Ears: Normal External Exam, Normal Canal, Hearing Grossly Normal, Normal TMs Nose: Normal Inspection, Normal Mucosa, No Blood Throat/Mouth: Normal Inspection, Normal Lips, Normal Teeth, Normal Gums, Normal Oropharynx, Normal Voice, No Airway Compromise, Other (No evidence of tongue laceration). No: Dysphagia, Perioral Cyanosis Head: Atraumatic, Normocephalic. No: Facial Swelling, Facial Tenderness, Sinus Tenderness Neck: Normal Inspection, Supple, Non-Tender, Full Range of Motion. No: Carotid Bruit, Lymphadenopathy (L), Lymphadenopathy (R), Thyromegaly Respiratory/Chest: No Respiratory Distress, Lungs Clear, Normal Breath Sounds, No Accessory Muscle Use, Chest Non-Tender. No: Rhonchi, Pleural Rub Cardiovascular: Normal Peripheral Pulses, Regular Rate, Rhythm, No Edema, No Gallop, No JVD, No Murmur, No Rub. No: Gallop/S3, Gallop/S4, Friction Rub Peripheral Pulses: 2+: Radial (L), Radial (R), Dorsalis Pedis (L), Dorsalis Pedis (R) GI/Abdominal: Normal Bowel Sounds, Soft, Non-Tender, No Organomegaly, No Distention, No Abnormal Bruit, No Mass, Pelvis Stable. No: Guarding (Male) Exam: Deferred Rectal (Males) Exam: Deferred Back Exam: Full Range of Motion, Other (Scoliosismild). No: CVA Tenderness (L) , CVA Tenderness (R), Muscle Spasm, Paraspinal Tenderness, Vertebral Tenderness Extremities: Normal Inspection, Normal Range of Motion, Non-Tender, No Pedal Edema, Normal Capillary Refill. No: Sandi's Sign Neurological: Normal Reflexes, Other (Negative Babinski's; patient unable to perform neurological exam. Lethargic to obtunded on arrival) Psychiatric: Anxious (Severe), Depressed Mood (Severe with suicidal ideation), Other (Combative) Skin Exam: Warm, Dry, Intact, Normal Color, No Rash, Tattoo(s) (Multiple). No: Diaphoretic, Wound/Incision Lymphatic: No Adenopathy ED GENERAL MEDICAL PROCEDURES - Additional/Other Procedure(s) Other (Free Text) Procedure(s): Gastric lavage with a 4 Greek tubing. 3 L room temperature tap water gavage until clear with some particulate matter noted. 2 g of activated charcoal given to the patient through the gavage tube. No complications including aspiration, etc. EKG INTERPRETATION EKG Date: 01/20/20 Time: 15:28 Rhythm: NSR Rate (Beats/Min): 75 [place]: Normal (Left) P-Wave: Present QRS: Wide (0.10 seconds representing repolarization changes) ST-T: Normal QT: Normal KS/PQ Interval: 0.14 seconds representing a somewhat improved short KS interval with no delta waves noted. Possible pulmonary hypertension by EKG. Comparison: No Change (09/29/19) EKG Interpretation Comments: 1. No acute ischemic changes 2. Short KS interval. Course - Vital Signs Last Recorded V/S: Last Vital Signs Temp Pulse 66 01/20/20 16:57 Resp 16 01/20/20 16:57 BP 124/70 01/20/20 16:57 Pulse Ox 95 01/20/20 16:57 Vital Signs - 24 hr 01/20/20 01/20/20 01/20/20 16:27 16:42 16:57 Pulse, 72 76 66 Peripheral [ Left Pulse Oximetry] Respiratory 20 20 16 Rate Blood Pressure 125/81 113/100 H 124/70 [Left Upper Arm ] O2 Sat by Pulse 99 99 95 Oximetry - Orders/Labs/Meds Orders: Active Orders 24 hr Category Date Time Status EKG Documentation Completion [RC] ASDIRECTED Care 01/20/20 15:24 Active Oxygen Therapy [RC] PRN Care 01/20/20 15:22 Active Peripheral IV Care [RC] . DIRECTED Care 01/20/20 15:18 Active Pulse Oximetry [RC] CONTINUOUS Care 01/20/20 15:23 Active REFLEX LACTIC ACID YES OR NO [CHEM] Routine Lab 01/20/20 15:55 Received Obtain Past Medical Record [OM.PC] Urgent Oth 01/20/20 15:18 Active Peripheral IV Insertion Adult [OM.PC] Routine Oth 01/20/20 15:18 Ordered Labs: Laboratory Tests 01/20/20 01/20/20 01/20/20 Range/Units 15:15 15:15 15:15 WBC 7.7 (4.0-10.2) K/uL RBC 4.59 (4.33-5.41) M/uL Hgb 14.9 (13.1-16.8) g/dL Hct 43.7 (39.0-49.0) % MCV 95.2 (84.0-98.0) fL MCH 32.5 (28.2-33.3) pg MCHC 34.1 (31.7-36.0) g/dL RDW 13.1 (11.2-14.1) % Plt Count 297 (150-350) K/uL Neut % (Auto) 70.4 (45.0-80.0) % Lymph % (Auto) 22.4 (10.0-50.0) % [place] % (Auto) 6.3 (2.0-14.0) % Eos % (Auto) 0.6 (0.0-5.0) % Baso % (Auto) 0.3 (0.0-2.0) % Neut # (Auto) 5.45 (1.40-7.00) K/uL Lymph # (Auto) 1.73 (0.50-3.50) K/uL [place] # (Auto) 0.49 (0.00-1.00) K/uL Eos # (Auto) 0.05 (0.00-0.50) K/uL Baso # (Auto) 0.02 (0.00-0.20) K/uL PT (9.5-12.0) SEC INR APTT (24.5-32.8) SEC Sodium 145 (136-145) mmol/L Potassium 3.3 L (3.5-5.1) mmol/L Chloride 106 (98-107) mmol/L Carbon Dioxide 25.2 (21.0-32.0) mmol/L BUN 6 L (7-18) mg/dL Creatinine 0.72 (0.51-1.17) mg/dL Est Cr Clr Drug Dosing TNP Estimated GFR (MDRD) > 60 mL/min Glucose 92 (74-106) mg/dL Lactic Acid (0.4-2.0) mmol/L Calcium 9.5 (8.5-10.1) mg/dL Magnesium 2.1 (1.8-2.4) mg/dL Total Bilirubin 0.6 (0.2-1.0) mg/dL AST 15 (15-37) U/L ALT 23 (12-78) U/L Alkaline Phosphatase 65 (46-116) IU/L Total Protein 8.2 (6.4-8.2) g/dL Albumin 4.7 (3.4-5.0) g/dL Amylase 40 (25-115) U/L Lipase 44 L (73-393) U/L TSH, Ultra Sensitive 2.111 (0.358-3.740) mIU/mL Specimen Type Urine Color Urine Appearance Urine pH (5.0-9.0) Ur Specific [place] (1.005-1.030) Urine Protein (NEGATIVE) mg/dL Urine Glucose (UA) (NEGATIVE) mg/dL Urine Ketones (NEGATIVE) mg/dL Urine Occult Blood (NEGATIVE) Urine Nitrite (NEGATIVE) Urine Bilirubin (NEGATIVE) Urine Urobilinogen (0.2-1.0) E.U./dL Ur Leukocyte Esterase (NEGATIVE) Urine RBC /HPF Urine WBC /HPF Urine Bacteria (NONE TO FEW) /HPF Urine Opiates Screen Negative (NEGATIVE) Ur Buprenorphine Scrn Negative (NEGATIVE) Ur Oxycodone Screen Negative (NEGATIVE) Ur EDDP (Meth Metab) Negative (NEGATIVE) Acetaminophen (10.0-30.0) ug/mL Ur Barbiturates Screen Negative (NEGATIVE) Ur Tricyclics Screen Negative (NEGATIVE) Ur Amphetamine Screen Negative (NEGATIVE) U Methamphetamines Scrn Negative (NEGATIVE) Urine MDMA Screen Negative (NEGATIVE) U Benzodiazepines Scrn Positive H (NEGATIVE) U Cocaine Metab Screen Negative (NEGATIVE) U Marijuana (THC) Screen Positive H (NEGATIVE) Ethyl Alcohol (0.000-0.080) g/dL 01/20/20 01/20/20 01/20/20 Range/Units 15:15 15:15 15:15 WBC (4.0-10.2) K/uL RBC (4.33-5.41) M/uL Hgb (13.1-16.8) g/dL Hct (39.0-49.0) % MCV (84.0-98.0) fL MCH (28.2-33.3) pg MCHC (31.7-36.0) g/dL RDW (11.2-14.1) % Plt Count (150-350) K/uL Neut % (Auto) (45.0-80.0) % Lymph % (Auto) (10.0-50.0) % [place] % (Auto) (2.0-14.0) % Eos % (Auto) (0.0-5.0) % Baso % (Auto) (0.0-2.0) % Neut # (Auto) (1.40-7.00) K/uL Lymph # (Auto) (0.50-3.50) K/uL [place] # (Auto) (0.00-1.00) K/uL Eos # (Auto) (0.00-0.50) K/uL Baso # (Auto) (0.00-0.20) K/uL PT 10.6 (9.5-12.0) SEC INR 1.1 APTT (24.5-32.8) SEC Sodium (136-145) mmol/L Potassium (3.5-5.1) mmol/L Chloride (98-107) mmol/L Carbon Dioxide (21.0-32.0) mmol/L BUN (7-18) mg/dL Creatinine (0.51-1.17) mg/dL Est Cr Clr Drug Dosing Estimated GFR (MDRD) mL/min Glucose (74-106) mg/dL Lactic Acid 2.1 H (0.4-2.0) mmol/L Calcium (8.5-10.1) mg/dL Magnesium (1.8-2.4) mg/dL Total Bilirubin (0.2-1.0) mg/dL AST (15-37) U/L ALT (12-78) U/L Alkaline Phosphatase (46-116) IU/L Total Protein (6.4-8.2) g/dL Albumin (3.4-5.0) g/dL Amylase (25-115) U/L Lipase (73-393) U/L TSH, Ultra Sensitive (0.358-3.740) mIU/mL Specimen Type Urinvoid Urine Color Yellow Urine Appearance Clear Urine pH 7.0 (5.0-9.0) Ur Specific [place] 1.010 (1.005-1.030) Urine Protein Negative (NEGATIVE) mg/dL Urine Glucose (UA) Negative (NEGATIVE) mg/dL Urine Ketones Negative (NEGATIVE) mg/dL Urine Occult Blood Negative (NEGATIVE) Urine Nitrite Negative (NEGATIVE) Urine Bilirubin Negative (NEGATIVE) Urine Urobilinogen 0.2 (0.2-1.0) E.U./dL Ur Leukocyte Esterase Negative (NEGATIVE) Urine RBC Not seen /HPF Urine WBC Not seen /HPF Urine Bacteria Not seen (NONE TO FEW) /HPF Urine Opiates Screen (NEGATIVE) Ur Buprenorphine Scrn (NEGATIVE) Ur Oxycodone Screen (NEGATIVE) Ur EDDP (Meth Metab) (NEGATIVE) Acetaminophen (10.0-30.0) ug/mL Ur Barbiturates Screen (NEGATIVE) Ur Tricyclics Screen (NEGATIVE) Ur Amphetamine Screen (NEGATIVE) U Methamphetamines Scrn (NEGATIVE) Urine MDMA Screen (NEGATIVE) U Benzodiazepines Scrn (NEGATIVE) U Cocaine Metab Screen (NEGATIVE) U Marijuana (THC) Screen (NEGATIVE) Ethyl Alcohol (0.000-0.080) g/dL 01/20/20 01/20/20 01/20/20 Range/Units 15:15 15:15 15:15 WBC (4.0-10.2) K/uL RBC (4.33-5.41) M/uL Hgb (13.1-16.8) g/dL Hct (39.0-49.0) % MCV (84.0-98.0) fL MCH (28.2-33.3) pg MCHC (31.7-36.0) g/dL RDW (11.2-14.1) % Plt Count (150-350) K/uL Neut % (Auto) (45.0-80.0) % Lymph % (Auto) (10.0-50.0) % [place] % (Auto) (2.0-14.0) % Eos % (Auto) (0.0-5.0) % Baso % (Auto) (0.0-2.0) % Neut # (Auto) (1.40-7.00) K/uL Lymph # (Auto) (0.50-3.50) K/uL [place] # (Auto) (0.00-1.00) K/uL Eos # (Auto) (0.00-0.50) K/uL Baso # (Auto) (0.00-0.20) K/uL PT (9.5-12.0) SEC INR APTT 26.1 (24.5-32.8) SEC Sodium (136-145) mmol/L Potassium (3.5-5.1) mmol/L Chloride (98-107) mmol/L Carbon Dioxide (21.0-32.0) mmol/L BUN (7-18) mg/dL Creatinine (0.51-1.17) mg/dL Est Cr Clr Drug Dosing Estimated GFR (MDRD) mL/min Glucose (74-106) mg/dL Lactic Acid (0.4-2.0) mmol/L Calcium (8.5-10.1) mg/dL Magnesium (1.8-2.4) mg/dL Total Bilirubin (0.2-1.0) mg/dL AST (15-37) U/L ALT (12-78) U/L Alkaline Phosphatase (46-116) IU/L Total Protein (6.4-8.2) g/dL Albumin (3.4-5.0) g/dL Amylase (25-115) U/L Lipase (73-393) U/L TSH, Ultra Sensitive (0.358-3.740) mIU/mL Specimen Type Urine Color Urine Appearance Urine pH (5.0-9.0) Ur Specific [place] (1.005-1.030) Urine Protein (NEGATIVE) mg/dL Urine Glucose (UA) (NEGATIVE) mg/dL Urine Ketones (NEGATIVE) mg/dL Urine Occult Blood (NEGATIVE) Urine Nitrite (NEGATIVE) Urine Bilirubin (NEGATIVE) Urine Urobilinogen (0.2-1.0) E.U./dL Ur Leukocyte Esterase (NEGATIVE) Urine RBC /HPF Urine WBC /HPF Urine Bacteria (NONE TO FEW) /HPF Urine Opiates Screen (NEGATIVE) Ur Buprenorphine Scrn (NEGATIVE) Ur Oxycodone Screen (NEGATIVE) Ur EDDP (Meth Metab) (NEGATIVE) Acetaminophen 0.0 L (10.0-30.0) ug/mL Ur Barbiturates Screen (NEGATIVE) Ur Tricyclics Screen (NEGATIVE) Ur Amphetamine Screen (NEGATIVE) U Methamphetamines Scrn (NEGATIVE) Urine MDMA Screen (NEGATIVE) U Benzodiazepines Scrn (NEGATIVE) U Cocaine Metab Screen (NEGATIVE) U Marijuana (THC) Screen (NEGATIVE) Ethyl Alcohol 0.043 (0.000-0.080) g/dL Meds: Medications Discontinued Medications Generic Name Dose Route Start Last Admin Trade Name Nahidq PRN Reason Stop Dose Admin Charcoal 50 gm 01/20/20 15:42 01/20/20 16:29 Actidose-Aqua PO 01/20/20 15:43 50 gm ONETIME ONE Administration Famotidine 40 mg 01/20/20 15:26 01/20/20 15:38 Pepcid IVPUSH 01/20/20 15:27 40 mg ONETIME ONE Administration Flumazenil Confirm 01/20/20 15:20 Romazicon Administered 01/20/20 15:21 Dose 0.5 mg .ROUTE .STK-MED ONE Flumazenil 0.5 mg 01/20/20 15:19 01/20/20 15:21 Romazicon IVPUSH 01/20/20 15:20 0.5 mg ONETIME ONE Administration Flumazenil 0.5 mg 01/20/20 15:26 01/20/20 15:38 Romazicon IVPUSH 01/20/20 15:27 0.5 mg ONETIME ONE Administration Flumazenil 1 mg 01/20/20 16:00 Romazicon IVPUSH 01/20/20 16:01 ONETIME ONE Lactated Ringer's 1,000 mls @ 999 mls/hr 01/20/20 15:23 01/20/20 15:39 Ringers, Lactated IV 01/20/20 16:23 999 mls/hr .BOLUS ONE Administration Levetiracetam 500 mg/ Sodium 105 mls @ 400 mls/hr 01/20/20 15:59 01/20/20 16: 28 Chloride IV 01/20/20 16:14 400 mls/hr ONETIME ONE Administration Lactated Ringer's 1,000 mls @ 125 mls/hr 01/20/20 17:00 01/20/20 16:58 Ringers, Lactated IV 125 mls/hr ASDIRECTED MARCIA Administration Lorazepam 0.5 mg 01/20/20 16:28 01/20/20 16:33 Ativan IVPUSH 01/20/20 16:29 0.5 mg ONETIME ONE Administration Naloxone HCl 2 mg 01/20/20 15:25 01/20/20 15:38 Narcan IVPUSH 01/20/20 15:26 2 mg ONETIME ONE Administration Sodium Chloride 10 ml 01/20/20 15:18 Saline Flush FLUSH ASDIRECTED PRN Keep Vein Open - Radiology Interpretation Free Text/Narrative:: monitoring coordinator showed normal sinus rhythm in the 60s to 70s initially with increased to 90s to 120s with agitation/combativeness. No extrasystoles. Departure - Departure Time of Disposition: 17:20 Disposition: DC/Tfer to Acute Hospital 02 Condition: Fair Clinical Impression: Seizure disorder, Hypokalemia, Illicit drug use, continuous, Mixed anxiety depressive disorder, Tobacco abuse counseling, Overdose, Shortened KS interval - Discharge Information *PRESCRIPTION DRUG MONITORING PROGRAM REVIEWED*: Not Applicable *COPY OF PRESCRIPTION DRUG MONITORING REPORT IN PATIENT JARED: Not Applicable Referrals: Cassandra Xiong PA-C [Primary Care Provider] - Forms: ED Department Discharge, Interfacility Transfer EMTALA Sepsis Event Note - Focused Exam Vital Signs: Vital Signs Pulse Resp BP Pulse Ox 01/20/20 16:57 66 16 124/70 95 01/20/20 16:42 76 20 113/100 H 99 01/20/20 16:27 72 20 125/81 99 Date Exam was Performed: 01/20/20 Time Exam was Performed: 17:30 - Problem List & Annotations (1) Overdose SNOMED Code(s): 24766483 Code(s): T50.901A - POISONING BY UNSP DRUG/MEDS/BIOL SUBST, ACCIDENTAL, INIT Status: Acute Priority: High Onset Date: 01/20/20 Annotation/Comment:: Intentional overdose with Xanax as above. Narcan 2 mg given IV prior to arrival as above. Note additional 1 mg of Romazicon was given with minimal improvement. Additional 2 mg of Narcan was once again given in the with no effect and increasing sedation/lethargy. Patient nonresponsive to painful stimuli. Additional doses of Romazicon were ordered as standby. Secondary to refractory symptoms a gastric lavage with 3 L of tap water was performed as above with additional subsequent 50 g of activated charcoal with overall excellent results. No complications from this procedure, including aspiration, etc. High- dose IV Pepcid was given as GI prophylaxis. Patient did become extremely agitated thereafter with 2 witnessed grand mal seizures as below, however no significant postictal sedation. Telephone consultation at 16:[address] Cespedes, hospitalist at [facility] in [place], who does accept the patient for direct admission. She is requesting that the patient received low- dose IV Ativan secondary to his seizure and combativeness. She also requested that I contact poison control with no further treatment recommendations given. Note patient has not been compliant with Xanax for over 1 year and also is not currently on any seizure medications. Secondary to his agitation and combativeness we did contact Frankie, police aide in [place] as a security measure, with no restraints required. [facility] will follow the ambulance to [place] with the patient refusing hospital transfer initially and threatening to pull out his IVs and leave AMA. Patient was placed on a 24-hour hold with appropriate paperwork completed. Low-dose IV Ativan did improve patient's combativeness, however. Telephone consultation at 16:35 hours with Poison Ccontrol, who is in agreement with our current treatment regimen, however they did request an additional acetaminophen level. Vital signs and clinical exam were stable at time of transfer although some returning mild sedation secondary to low-dose IV Ativan as above. Qualifiers: Encounter type: initial encounter Injury intent: intentional self-harm Qualified Code(s): T50.902A - Poisoning by unspecified drugs, medicaments and biological substances, intentional self-harm, initial encounter (2) Mixed anxiety depressive disorder SNOMED Code(s): 299200485 Code(s): F41.8 - OTHER SPECIFIED ANXIETY DISORDERS Status: Chronic Priority: High Annotation/Comment:: Extremely poor control with suicidal attempt with Xanax overdose as above. After treatment the patient did state that "he has nothing to lose." He also became very combative and agitated, although this did improve with subsequent low-dose IV Ativan prior to transfer. The patient having been noncompliant with his Xanax for at least one year and Lexapro for about 34 months with previous history of significant medication noncompliance secondary to financial reasons. Emotional support was provided. Note current marijuana and alcohol use with the patient using marijuana as an antianxiety agent. (3) Seizure disorder SNOMED Code(s): 689887557 Code(s): G40.909 - EPILEPSY, UNSP, NOT INTRACTABLE, WITHOUT STATUS EPILEPTICUS Status: Acute Priority: High Annotation/Comment:: Note grandmother seizures 2 observed by physician and nursing staff shortly after gastric lavage as above. Keppra 500 mg IV given prior to transfer with additional doses by accepting provider depending on his clinical course. Note additional low-dose IV Ativan given per accepting provider's request as above. Patient has stated in the past that he has had recurrent seizures since age 14 with multiple negative workups, including CT scans of the head, EEGs, MRIs etc. His last seizure was on 09/29/19 with evaluation in our facility at that time with previous known seizure in November 2018 with the patient at [facility] with CT scan of the head and EEG performed at that time by his history. Extensive review of EMR records both from [facility] and [facility] on 09/29/19 did not indicate recent testing or evaluation, however. No postictal sedation noted today. Suspected pseudoseizure in the past, however I do believe these were legitimate seizures today. The patient is currently on driving restrictions by his history. (4) Hypokalemia SNOMED Code(s): 75575950 Code(s): E87.6 - HYPOKALEMIA Status: Acute Priority: Medium Onset Date : 09/30/19 Annotation/Comment:: Mild hypokalemia prior to gastric lavage. Note aggressive IV hydration with lactated Ringer's, including in route to the accepting provider. (5) Tobacco abuse counseling SNOMED Code(s): 617584027, 005465276, [id number] Code(s): Z71.6 - TOBACCO ABUSE COUNSELING Status: Chronic Priority: Medium Annotation/Comment:: Tobacco cessation previously strongly encouraged with tobacco cessation information provided at discharge from this facility on 09/29/19. (6) Illicit drug use, continuous SNOMED Code(s): 030386810 Code(s): F19.90 - OTHER PSYCHOACTIVE SUBSTANCE USE, UNSPECIFIED, UNCOMPLICATED Status: Chronic Priority: High Annotation/Comment:: As above (7) Shortened [place] interval SNOMED Code(s): 02722996 Code(s): R94.31 - ABNORMAL ELECTROCARDIOGRAM [ECG] [EKG] Status: Chronic Priority: Medium Onset Date: 09/29/19 Annotation/Comment:: No evidence of QT prolongation. - Problem List Review Problem List Initiated/Reviewed/Updated: Yes - My Orders Last 24 Hours: My Active Orders 01/20/20 15:18 Peripheral IV Care [RC] . DIRECTED Obtain Past Medical Record [OM.PC] Urgent Peripheral IV Insertion Adult [OM.PC] Routine 01/20/20 15:22 Oxygen Therapy [RC] PRN 01/20/20 15:23 Pulse Oximetry [RC] CONTINUOUS 01/20/20 15:24 EKG Documentation Completion [RC] ASDIRECTED 01/20/20 15:55 REFLEX LACTIC ACID YES OR NO [CHEM] Routine - Assessment/Plan Last 24 Hours: My Active Orders 01/20/20 15:18 Peripheral IV Care [RC] . DIRECTED Obtain Past Medical Record [OM.PC] Urgent Peripheral IV Insertion Adult [OM.PC] Routine 01/20/20 15:22 Oxygen Therapy [RC] PRN 01/20/20 15:23 Pulse Oximetry [RC] CONTINUOUS 01/20/20 15:24 EKG Documentation Completion [RC] ASDIRECTED 01/20/20 15:55 REFLEX LACTIC ACID YES OR NO [CHEM] Routine Assessment:: As above Plan: As above. Extensive precautions were given to the patient and his significant other by telephone, who are in agreement with the treatment plan. Ambulance transfer with plate corrector accompaniment.
[2020-01-20] MEDS ORDERED: Sodium Chloride 0.9% 10 ML Syringe FLUSH PRN (15:18)
[2020-01-20] MEDS ORDERED: Flumazenil 0.1 MG/ML 5 ML MDV IVPUSH ONE ×4 (15:18→16:00)
[2020-01-20] MEDS ORDERED: Flumazenil 0.1 MG/ML 5 ML MDV ONE (15:20)
[2020-01-20] MEDS ORDERED: Lactated Ringers 1,000 ML IV ONE (15:23)
[2020-01-20] MEDS ORDERED: Naloxone 2 MG/2 ML Syringe IVPUSH ONE (15:25)
[2020-01-20] MEDS ORDERED: Famotidine 20 MG/2 ML SDV IVPUSH ONE (15:26)
[2020-01-20 15:35] LABS: BARBITURATE SCREEN,URINE NEGATIVE (NEGATIVE); BENZODIAZEPINES SCREEN,URINE POSITIVE (NEGATIVE); EDDP,URINE SCREEN NEGATIVE (NEGATIVE); TCA SCREEN,URINE NEGATIVE (NEGATIVE); THC SCREEN,URINE 50 NG/ML POSITIVE (NEGATIVE)
[2020-01-20] MEDS ORDERED: Activated Charcoal/Water Susp 50 GM/240 ML Tube PO ONE (15:42)
[2020-01-20 15:51] LABS: CHLORIDE,CL 106 mmol/L (98-107); SODIUM,NA 145 mmol/L (136-145)
[2020-01-20] MEDS ORDERED: levETIRAcetam 500 MG in Sodium Chloride 0.9% 100 ML IV ONE (15:59)
[2020-01-20] MEDS ORDERED: LORazepam 2 MG/ML SDV IVPUSH ONE (16:28)
[2020-01-20] MEDS ORDERED: Lactated Ringers 1,000 ML IV SCH (17:00)
[2020-01-20 17:11] VITALS: BP 124/70; PULSE 66
== END 2020-01-20 17:23 ==
LOC: LL.ED 15:16
DX: T42.4X2A Poisoning by benzodiazepines, intentional self-harm, initial encounter (principal); G40.909 Epilepsy, unspecified, not intractable, without status epilepticus; E87.6 Hypokalemia; F19.90 Other psychoactive substance use, unspecified, uncomplicated; F41.8 Other specified anxiety disorders; R94.31 Abnormal electrocardiogram [ECG] [EKG]; F17.210 Nicotine dependence, cigarettes, uncomplicated; M41.9 Scoliosis, unspecified; Z71.6 Tobacco abuse counseling; Z79.899 Other long term (current) drug therapy
CPT/HCPCS: 36415; 80053; 80305-QW; 80307; 81001; 82150; 83605; 83690; 83735; 84443; 85025; 85610; 85730; 93005; 93010; 96365; 96375; 96376; 99284; 99285-25; J1953; J2060; J2310; J3490; J7050; J7120